=== PATIENT | female | born 1965 | race Caucasian/White ===

== ENCOUNTER 2016-11-11 21:49 | Emergency (ER) | payer OTHER ==
[~2016-11-11] VITALS: Ht 167.6 cm; Wt 70.5 kg
[~2016-11-11 21:49] MED LIST: ACET-171 PO; ALBU8.5H2 INHALATION; ALOE; ALOE VERA PR; BUPR150T12 PO; CETI-343 PO; FLUT9.9S NS; HCT; HCT PR; IBUP-1827 PO; LIDO PR; LIDOCAINE; LORA1TAB PO; MECL-114 PO; MV,C400T2 PO; OXYC5CAP4 PO; POLY17PO15 PO; POLY17PO6 PO; ROB500 PO; TRAZ-115 PO
[2016-11-11 22:35] VITALS: BP 115/79; RESP 20; O2SAT 98
[2016-11-11] MEDS ORDERED: Tetracaine 0.5% 4 mL Ophthalmic Solution ONE (22:58)
[2016-11-11] MEDS ORDERED: 0.9% Sodium Chloride Inhalation Solution ONE (22:58)
[2016-11-11] MEDS ORDERED: Fluorescein 0.6 mg Ophthalmic Strip ONE (22:58)
--- NOTE | 2016-11-11 23:00 | ED.REPORT ---
HPI-Eye Problem Date of Service Nov 11, 2016 ED Provider: Brijesh Larsen DO Pt is a 51 year old female with a history of depression and anxiety who presents to the ED after a hen pecked her left open eye 2 hours ago. The pt was on her back, lacing chicken mesh together when one of their hens flew up and pecked her left eye. She notes severe left eye discomfort with a foreign body sensation. It feels like gravel is in her eye. She has been holding pressure with a towel over her eyes since the incident. Light bothers her eyes. She denies any other symptoms. Nursing Notes Stated Complaint: PECKED IN EYE BY CHICKEN Chief Complaint: ENT & Mouth Nursing Notes Reviewed: Yes Allergies: Coded Allergies: Sulfa (Sulfonamide Antibiotics) (Verified Allergy, Severe, HIVES, 11/11/16) varenicline (Verified Allergy, Severe, RASH, 11/11/16) citalopram (Verified Allergy, Unknown, UNKNOWN, 11/11/16) gabapentin (Verified Allergy, Unknown, UNKNOWN, 11/11/16) levofloxacin (Verified Allergy, Unknown, UNKNOWN, 11/11/16) Uncoded Allergies: HORSES (Allergy, Severe, RASH ON CHEST, 03/25/13) POLLENS (Allergy, Unknown, VOMITING,RASH, 05/09/16) CATS (Adverse Reaction, Severe, HEADACHE, 05/09/16) DUST MITES (Adverse Reaction, Severe, HEADACHE, 05/09/16) Scheduled ([Lido/Hct/Aloe Vera]) 1 APPLIC TN BID Bupropion ER (Bupropion ER) 150 Mg Tablet.er 150 MG PO BID Cetirizine HCl (24Hour Allergy) 10 Mg Tablet 10 MG PO DAILY Fluticasone Propionate (Flonase Allergy Relief) 50 Mcg/Actuation Norton.susp 9.9 ML NS DAILY Mv,Ca,Min/FA/Herbal No.157 (Estroven Max Strength Caplet) 400 Mcg Tablet 400 MCG PO DAILY Trazodone (Trazodone) 50 Mg Tablet 50 MG PO TIDAC Scheduled PRN Acetaminophen (Acetaminophen) 500 Mg Tablet 1,000 MG PO Q6H PRN PRN janes Albuterol HFA (Proair HFA) 8.5 Gm Hfa.aer.ad 2 PUFFS INHALATION Q4H PRN PRN PRN Ibuprofen (Ibuprofen) 600 Mg Tablet 600 MG PO QID PRN PRN For Pain Ibuprofen (Ibuprofen) 600 Mg Tablet 600 MG PO QID PRN PRN For Pain Lorazepam (Lorazepam) 1 Mg Tablet 1 MG PO BID PRN PRN For Anxiety Meclizine (Bonine) 25 Mg Tab.chew 25 MG PO TID PRN PRN PRN Methocarbamol (Methocarbamol) 500 Mg Tablet 1,000 MG PO QID PRN PRN PRN Polyethylene Glycol 3350 (Miralax) 17 Gm Powd.pack 17 GM PO BID PRN PRN PRN Polyethylene Glycol 3350 (Smoothlax) 17 Gm Powd.pack 17 GM PO DAILY PRN PRN For Constipation oxyCODONE (oxyCODONE) 5 Mg Capsule 5 MG PO Q4H PRN PRN For Pain Miscellaneous Medications ([Lidocaine/Hct/Aloe]) General Time Seen by MD: 22:59 Chief Complaint Left eye affected Hx Obtained From: Patient Arrived By: Walk-in Sudden in Onset?: No Onset Occurred: Just prior to arrival Symptom Duration: Since onset Location: : Eye right Quality: Painful Severity: Current: Moderate Severity: Maximum: Moderate Recent Healthcare: No recent doctor visit, No recent hospitalization Similar Sx Previous: No Past Medical History Past Medical History Depression Anxiety Mild asthma Past Surgical History Oopherectomy Ovarian cystectomy Reports: Hysterectomy Smoking History Unknown if Ever Smoker Social History Alcohol Use: Denies alcohol use Drug Use: Denies drug use Ambulatory Status Independent Review of Systems Eyes: Reports: Eye pain left, Denies: Blurred left, Eye pain right Complete sys rev & neg: except as marked. Respiratory: Denies: Non-productive cough, Shortness of breath Physical Exam Initial Vital Signs Vital Signs (First) Date Time Temp Pulse Resp B/P Pulse Ox O2 Delivery O2 Flow Rate FiO2 11/11/16 22:35 37 79 20 115/79 98 Room Air Initial VS: Reviewed ENT: Mucous membranes moist, Conjunctiva normal, No scleral icterus Neck: Supple, Full range of motion Respiratory: Breath sounds normal, Clear to auscultation, No respiratory distress Cardiovascular: Regular rate & rhythm, Heart sounds normal, Intact distal pulses Abdomen / GI: Soft, Non-tender Extremities: Vascular intact, Neuro intact Skin: Warm, Dry, No cyanosis Neurologic: Alert, Oriented, Nonfocal Psychiatric: Mood/affect normal, Behavior normal Head / Eyes: PERRL, EOMI Left eye is 20/20 vision, pressure of 13. Right eye is 20/20 vision, pressure of 12. Normal anterior chambers bilaterally. Corneal abrasion that is just over the center of the pupil in a beak shape. No foreign body seen with lid eversion. General/Constitutional: Awake, Alert, Cooperative, Not toxic appearing Re-Eval/Medical Decision Med Decision/Clinical Course 51-year-old female presenting with a corneal abrasion caused by being pecked by chicken. The abrasion is triangular in shape and is just overlying the pupil. No foreign body is identified. Her vision is unaffected and there are no signs of globe rupture. Pain relieved with anesthetic eyedrops. She was prescribed erythromycin antibiotic ointment and close follow-up with her eye doctor. She is instructed to return if there are any change in her symptoms. Patient understands and agrees with the plan Source of Hx: Old records Re-Evaluation/Progress : Time of Eval: 23:23 Re-Evaluation/Progress Note: Pt rechecked. Informed pt of plan for discharge. Pt understands and agrees with plan for discharge. F/U instructions and RTER warnings given. All questions addressed. Counseled Regarding: Diagnosis, Need for follow-up, When/why to return to ED Discharge & Departure Primary Impression: Corneal abrasion, left Encounter type: initial encounter Qualified Code: S05.02XA - Injury of conjunctiva and corneal abrasion without foreign body, left eye, initial encounter Additional Impression: Pecked by chicken, initial encounter Ruled Out: Ruptured globe of left eye Disposition: Home Discharge Condition All VS Reviewed: Yes Condition: Stable Patient Instructions: Corneal Abrasion (ED) Additional Instructions: Use the antibiotic ointment as prescribed. Your symptoms should start to significantly improve in 24-48 hours Follow up with an airport ramp agent on Sunday. Return to the emergency department if you suddenly lose vision in your left eye or if you have any new or worsening symptoms. Referrals: Pamela Mendosa (PCP) Scribe Attestation Portions of this note were transcribed by Amy Landaverde. IDr. Larsen personally performed the history, physical exam and medical decision-making; I reviewed and confirmed the accuracy of the information in the transcribed note. Signed by: Vanessa Kelsey, 11/11/16 and 23:50 copies to: Pamela Mendosa Gary R DO Nov 11, 2016 23:00 Amy Juan Nov 11, 2016 23:08
[2016-11-11] MEDS ORDERED: Erythromycin 0.5% 1 Gm Ophthalmic Ointment LEFT_EYE ONE (23:55)
[2016-11-12 00:44] VITALS: BP 125/78; PULSE 69; RESP 18; O2SAT 95
[2016-11-12] MEDS ORDERED: _Erythromycin 0.5% Oph Oint 3.5 gm AFFECT_EYE SCH (08:30)
== END 2016-11-12 00:45 | disposition home or self-care (01) ==
LOC: SED 21:49
DX: S05.02XA Injury of conjunctiva and corneal abrasion without foreign body, left eye, initial encounter (principal); W61.33XA Pecked by chicken, initial encounter; Y92.9 Unspecified place or not applicable; Y93.K9 Activity, other involving animal care; Y99.8 Other external cause status; F32.9 Major depressive disorder, single episode, unspecified; F41.9 Anxiety disorder, unspecified; J45.909 Unspecified asthma, uncomplicated; Z88.2 Allergy status to sulfonamides; Z88.8 Allergy status to other drugs, medicaments and biological substances; Z88.1 Allergy status to other antibiotic agents